=== PATIENT | female | born 1990 | race Hispanic/Latino ===

== ENCOUNTER 2020-09-25 20:12 | Emergency (ER) | payer MEDICAID ==
[2020-09-25 20:43] LABS: Basophils # (Auto) 0.1 K/mm3 (0.0-0.1); Basophils % (Auto) 0.8 % (0.0-1.8); Eosinophils # (Auto) 0.1 K/mm3 (0.0-0.4); Eosinophils % (Auto) 1.3 % (0.0-4.3); Hematocrit 40.9 % (30.3-42.9); Hemoglobin 14.1 gm/dl (10.1-14.3); Lymphocytes # (Auto) 2.4 K/mm3 (1.2-5.4); Lymphocytes % (Auto) 34.2 % (13.4-35.0); Mean Corpuscular HGB Conc 34 % (30-34); Mean Corpuscular Volume 99 fl (79-97); Monocytes # (Auto) 0.5 K/mm3 (0.0-0.8); Monocytes % (Auto) 7.7 % (0.0-7.3); Platelet Count 245 K/mm3 (140-440); Red Blood Count 4.14 M/mm3 (3.65-5.03); Red Cell Distribution Width 12.9 % (13.2-15.2)
[2020-09-25 21:01] LABS: Blood Urea Nitrogen 21 mg/dL (7-17); Calcium 9.6 mg/dL (8.4-10.2); Hemolysis Index 6
[2020-09-25 21:03] LABS: BUN/Creatinine Ratio 30
[2020-09-25 22:19] LABS: Bacteria,Urine 2+ /HPF (Negative); Bilirubin,Urine NEG (Negative); Blood,Urine NEG (Negative); Color,Urine Yellow (Yellow); Mucus,Urine FEW /HPF; Protein,Urine <15 mg/dL mg/dL (Negative); Urobilinogen,Urine < 2.0 mg/dL (<2.0)
[2020-09-25 22:21] LABS: Amphetamine Screen,Urine Negative; Benzodiazepines Screen,Urine Negative; Cannabinoid Screen,Urine Negative; Cocaine Screen,Urine Negative; Methadone Screen,Urine Negative; Opiate Screen,Urine Negative
--- NOTE | 2020-09-26 04:25 | Emergency Department Report ---
ED Psych HPI - General Chief Complaint: Psych Stated Complaint: ANXIETY Time Seen by Provider: 09/26/20 04:21 Source: patient Mode of arrival: Ambulatory - History of Present Illness Initial Comments: Patient is 30 years old female with history of bipolar disorder. Patient prese nted to the ER by herself for evaluation of depression. Patient stated that she was on mental health assessment. Patient stated that she is going through a lot of stress and she is having difficulty coping with it. 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 Patient denied any suicidal or homicidal ideation. No visual or auditory hallucination. MD Complaint: feels depressed - Related Data Allergies Allergy/AdvReac Type Severity Reaction Status Date / Time No Known Allergies Allergy Unverified 09/25/20 20:29 ED Review of Systems ROS: Stated complaint: ANXIETY Other details as noted in HPI Comment: All other systems reviewed and negative Constitutional: denies: chills, fever Respiratory: denies: cough, shortness of breath, SOB with exertion, SOB at rest, wheezing Cardiovascular: denies: chest pain, palpitations Gastrointestinal: denies: abdominal pain, nausea, vomiting Musculoskeletal: denies: back pain Neurological: denies: headache, weakness, numbness, paresthesias, confusion, abnormal gait Psychiatric: depression. denies: auditory hallucinations, visual hallucinations, homicidal thoughts, suicidal thoughts ED Past Medical Hx - Past Medical History Previous Medical History?: Yes Hx Psychiatric Treatment: Yes (Anxiety, Depression, Bipolar) - Surgical History Past Surgical History?: Yes Hx Appendectomy: Yes - Social History Smoking Status: Current Every Day Smoker Substance Use Type: None ED Physical Exam - General Limitations: No Limitations General appearance: alert, in no apparent distress - Head Head exam: Present: atraumatic, normocephalic, normal inspection - Eye Eye exam: Present: normal appearance - ENT ENT exam: Present: normal exam, normal orophraynx, mucous membranes moist - Neck Neck exam: Present: normal inspection, full ROM. Absent: tenderness, meningismus, lymphadenopathy, thyromegaly - Respiratory Respiratory exam: Present: normal lung sounds bilaterally - Cardiovascular Cardiovascular Exam: Present: regular rate, normal rhythm, normal heart sounds - GI/Abdominal GI/Abdominal exam: Present: soft, normal bowel sounds. Absent: distended, tenderness, guarding, rebound, rigid, organomegaly, mass, bruit, pulsatile mass, hernia - Extremities Exam Extremities exam: Present: normal inspection, full ROM, normal capillary refill. Absent: pedal edema, calf tenderness - Back Exam Back exam: Present: normal inspection, full ROM. Absent: CVA tenderness (R), CVA tenderness (L) - Neurological Exam Neurological exam: Present: alert, oriented X3, CN II-XII intact - Psychiatric Psychiatric exam: Present: flat affect. Absent: agitated, manic, homicidal ideation, suicidal ideation - Skin Skin exam: Present: warm, intact, normal color ED Course Vital Signs 09/25/20 20:33 Temperature 97.7 F Pulse Rate 62 Respiratory 16 Rate Blood Pressure 125/71 O2 Sat by Pulse 100 Oximetry ED Medical Decision Making - Lab Data Result diagrams: 09/25/20 20:32 09/25/20 20:32 Critical care attestation.: If time is entered above; I have spent that time in minutes in the direct care of this critically ill patient, excluding procedure time. ED Disposition Clinical Impression: Depression Disposition: [facility]- [facility] Is pt being admited?: No Condition: Stable Referrals: PRIMARY CARE, [Primary Care Provider] - 3-5 Days
[2020-09-26 07:50] VITALS: BP 110/58
--- NOTE | 2020-09-26 11:05 | Consultation ---
History of Present Illness - Reason for Consult Consult date: 09/26/20 Reason for consult: MHE Requesting physician: LATA MCKEON - History of Present Psychiatric Illness Per ED provider patient is 30 years old female with history of bipolar disorder. Patient presented to the ER by herself for evaluation of depression. Patient stated that she was on mental health assessment. Patient stated that she is going through a lot of stress and she is having difficulty coping with it. 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 Patient denied any suicidal or homicidal ideation. No visual or auditory hallucination. PSYCH HPI Patient is a single, currently unemployed female who resides in a transitional home with past psychiatric history of bipolar, depression, borderline personality disorder who presented to the ED seeking mental health evaluation with medication management. Patient reported that she has been very anxious lately, and to get her life together and the only decision made her feel off and she feels she is being watched observe with someone expecting her to fail. 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 Patient stated that she is here because she will need help with medication to slow her thought process because she feels she is having racing thoughts. She denies hearing voices denies suicidal homicidal ideation at this moment. PAST PSYCHIATRIC HISTORY Diagnoses: bipolar, depression, borderline personality disorder Suicide attempts or Self-harm behavior: Yes overdose in 2019 Prior psychiatric hospitalizations: Yes Substance Abuse history: all type of drug was recently alcohol Previous psychiatric medications tried: Noncompliant Outpatient treatment: None at this moment PAST MEDICAL HISTORY: None reported Family Psychiatric History: None reported or documented SOCIAL HISTORY Marital Status: Single Living Arrangements: Transitional housing Employment Status: Unemployed Access to guns/weapons: None reported Education: High school History of Abuse: None up Legal History: Yes REVIEW OF SYSTEMS Constitutional: Negative for weight loss ENT: Negative for stridor Respiratory: Negative for cough or hemoptysis All other systems reviewed and are negative MENTAL STATUS EXAMINATION General Appearance and Behavior: Age appropriate, good hygiene, wearing appropriate clothes, good eye contact, cooperative polite with questioning. Cooperation: Participating/engaged Psychomotor Behavior: unremarkable and within normal limits Mood: Good Affect and affective range: congruent with mood Thought Process: Racing thoughts Thought Content: Within reality, Speech: Normal volume, Regular rate and rhythm, Intellectual Functioning: Average Suicidal Ideation: Denies SI Homicidal Ideation: Denies HI Impulse Control: Unimpaired Insight and Judgment: Normal insight and judgment, Memory: Normal, Attention: Normal, Orientation: Alert, oriented, Diagnoses: Assessment and Plan - Psychiatric problem (1) Bipolar 1 disorder, depressed Current Visit: Yes Status: Acute Treatment Plan MEDICATIONS: We will start patient on lorazepam, fluoxetine, and Wellbutrin. Risks, benefits and alternatives of medications discussed with the patient, questions answered and consent obtained from patient. PSYCHOTHERAPY: Supportive psychotherapy provided MEDICAL: Per primary team DELIRIUM PRECAUTIONS: Please re-orient patient frequently, keep lights on during the day, and minimize benzodiazepines and opiates as these medications could worsen patient's confusion. 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 Please contact with any questions and/or concerns. Medications and Allergies Allergies Allergy/AdvReac Type Severity Reaction Status Date / Time No Known Allergies Allergy Unverified 09/25/20 20:29 Home Medications Medication Instructions Recorded Confirmed Last Taken Type FLUoxetine [PROzac] 10 mg PO QDAY #30 tablet 09/26/20 Unknown Rx OLANzapine [ZyPREXA] 5 mg PO QDAY #30 tablet 09/26/20 Unknown Rx buPROPion [Wellbutrin] 100 mg PO 0900,1400 #60 tab 09/26/20 Unknown Rx Mental Status Exam - Vital signs Last Vital Signs Temp 97.7 F 09/25/20 20:33 Pulse 85 09/26/20 07:48 Resp 16 09/26/20 07:48 BP 110/58 09/26/20 07:38 Pulse Ox 98 09/26/20 07:48 Results Result Diagrams: 09/25/20 20:32 09/25/20 20:32 Abnormal lab results 09/25/20 09/25/20 09/25/20 Range/Units 20:32 20:32 20:32 MCV (79-97) fl MCH (28-32) pg RDW (13.2-15.2) % Briscoe % (Auto) (0.0-7.3) % BUN 21 H (7-17) mg/dL Glucose 103 H (65-100) mg/dL Salicylates < 0.3 L (2.8-20.0) mg/dL Acetaminophen 5.0 L (10.0-30.0) ug/mL 09/25/20 Range/Units 20:32 MCV 99 H (79-97) fl MCH 34 H (28-32) pg RDW 12.9 L (13.2-15.2) % [place]iscoe % (Auto) 7.7 H (0.0-7.3) % BUN (7-17) mg/dL Glucose (65-100) mg/dL Salicylates (2.8-20.0) mg/dL Acetaminophen (10.0-30.0) ug/mL All other labs normal. Assessment and Plan - Psychiatric problem (1) Bipolar 1 disorder, depressed Current Visit: Yes Status: Acute
== END 2020-09-26 12:40 | disposition left against medical advice (07) ==
LOC: ED 20:12
DX: F32.9 Major depressive disorder, single episode, unspecified (principal); F17.200 Nicotine dependence, unspecified, uncomplicated; F41.9 Anxiety disorder, unspecified; Z90.49 Acquired absence of other specified parts of digestive tract
CPT/HCPCS: 36415; 80048; 80307; 80320; 81001; 84703; 85025; G0480

== ENCOUNTER 2022-01-30 22:18 | Emergency (ER) | payer MEDICAID ==
[2022-01-30 22:34] VITALS: BP 124/86
[2022-01-31] MEDS ORDERED: IBUPROFEN 400 MG TAB PO ONE (01:10)
[2022-01-31] MEDS ORDERED: ACETAMINOPHEN 325 MG TAB PO ONE (01:10)
[2022-01-31] MEDS ORDERED: TETANUS,DIPH,PERTUSS(ACELL) VACCINE 0.5 ML SYRINGE IM ONE (01:10)
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
--- NOTE | 2022-01-31 01:50 | XRay Report ---
MANDIBLE 4 VIEWS INDICATION / CLINICAL INFORMATION: jaw pain. COMPARISON: None available. FINDINGS: BONES / JOINT(S): No acute fracture or subluxation. No significant arthritis. There is periapical kd ency associated with the left second mandibular premolar. SOFT TISSUES: No significant abnormality. ADDITIONAL FINDINGS: None. IMPRESSION: 1. No acute findings. 2. 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 Signer Name: Homer Arreola MD Signed: 01/31/2022 1:46 AM Workstation Name: [id number]
[2022-01-31] MEDS ORDERED: PENICILLIN V POTASSIUM 250 MG TAB PO ONE (02:10)
== END 2022-01-31 02:41 | disposition home or self-care (01) ==
LOC: ED 22:18
DX: S01.501A Unspecified open wound of lip, initial encounter (principal); R68.84 Jaw pain; F31.9 Bipolar disorder, unspecified; Z79.899 Other long term (current) drug therapy; Z98.890 Other specified postprocedural states; F17.200 Nicotine dependence, unspecified, uncomplicated; Y08.89XA Assault by other specified means, initial encounter; Y93.89 Activity, other specified; Y92.89 Other specified places as the place of occurrence of the external cause; Y99.8 Other external cause status
CPT/HCPCS: 70100; 90471; 90715; 99283

== ENCOUNTER 2022-06-13 18:36 | Emergency (ER) | payer SELFPAY ==
[2022-06-13] MEDS ORDERED: AZITHROMYCIN 250 MG TAB PO ONE (21:12)
[2022-06-13] MEDS ORDERED: LIDOCAINE-MPF (1%) 10 MG/1 ML VIAL 5 ML INFILTRATI ONE (21:12)
[2022-06-13] MEDS ORDERED: ACETAMINOPHEN 500 MG TAB PO ONE (21:35)
--- NOTE | 2022-06-13 21:35 | Emergency Department Report ---
ED General Adult HPI - General Chief complaint: Dental/Oral Stated complaint: TOOTH ACHE Time Seen by Provider: 06/13/22 21:12 Source: patient Mode of arrival: Ambulatory Limitations: No Limitations - History of Present Illness Initial comments: Patient presents for multiple complaints including tooth ache and STI exposure. Patient denies fevers or chills patient is tolerating p.o. intake there is no facial or gum swelling last sexual contact 3 days ago. Patient states vaginal discharge and itching. No fevers no chills no nausea or vomiting. Patient denies other injury. Severity scale (0 -10): 10 - Related Data Previous Rx's Medication Instructions Recorded Last Taken Type Amoxicillin/K Clav Tab [Augmentin 1 tab PO BID 7 Days #14 tab 06/13/22 Unknown Rx 875 mg] metroNIDAZOLE [metroNIDAZOLE 1 applicatio VG QHS 7 Days #1 tube 06/13/22 Unknown Rx VAGINAL 0.75% gel] ED Review of Systems ROS: Stated complaint: TOOTH ACHE Other details as noted in HPI Constitutional: denies: chills, fever Eyes: denies: eye pain, eye discharge, vision change ENT: dental pain. denies: ear pain, throat pain Respiratory: denies: cough, shortness of breath, wheezing Cardiovascular: denies: chest pain, palpitations Endocrine: no symptoms reported Gastrointestinal: denies: abdominal pain, nausea, vomiting, diarrhea Genitourinary: discharge. denies: urgency, dysuria, frequency, hematuria Musculoskeletal: other (Right ankle pain and swelling ). denies: back pain, joint swelling, arthralgia Skin: denies: rash, lesions Neurological: denies: headache, weakness, paresthesias Psychiatric: denies: anxiety, depression Hematological/Lymphatic: denies: easy bleeding, easy bruising ED Past Medical Hx - Medications Home Medications: Home Medications Medication Instructions Recorded Confirmed Last Taken Type Amoxicillin/K Clav Tab [Augmentin 1 tab PO BID 7 Days #14 tab 06/13/22 Unknown Rx 875 mg] metroNIDAZOLE [metroNIDAZOLE 1 applicatio VG QHS 7 Days #1 tube 06/13/22 Unknown Rx VAGINAL 0.75% gel] ED Physical Exam - General Limitations: No Limitations General appearance: alert, in no apparent distress - Head Head exam: Present: normocephalic, normal inspection - Eye Eye exam: Present: EOMI Pupils: Present: normal accommodation - ENT ENT exam: Present: mucous membranes moist, TM's normal bilaterally, normal external ear exam - Expanded ENT Exam Expanded Teeth exam: Present: dental caries (Multiple 2-3) Throat exam: Positive: normal inspection, other (Uvula midline no stridor no exudate no lesions.). Negative: tonsillar erythema, tonsillomegaly, tonsillar exudate, R peritonsillar mass, L peritonsillar mass - Neck Neck exam: Present: normal inspection, full ROM. Absent: tenderness, lymphadenopathy, thyromegaly - Respiratory Respiratory exam: Present: normal lung sounds bilaterally. Absent: respiratory distress, wheezes - Cardiovascular Cardiovascular Exam: Present: regular rate, normal rhythm, normal heart sounds. Absent: systolic murmur, diastolic murmur, rubs, gallop - GI/Abdominal GI/Abdominal exam: Present: soft, normal bowel sounds. Absent: distended, tenderness - Rectal Rectal exam: Present: deferred - External exam: Present: other (Deferred) - Extremities Exam Extremities exam: Present: normal inspection, full ROM, normal capillary refill - Expanded Lower Extremity Exam Right Ankle exam: Present: full ROM, swelling. Absent: tenderness, abrasion, laceration, ecchymosis, deformity, crepidus, dislocation, erythema, anterior draw sign Foot/Toe exam: Present: full ROM. Absent: tenderness, swelling Neuro vascular tendon exam: Absent: pulse deficit, motor deficit, sensory deficit, tendon deficit Gait: Positive: observed and normal - Back Exam Back exam: Present: normal inspection, full ROM. Absent: CVA tenderness (R), CVA tenderness (L) - Neurological Exam Neurological exam: Present: alert, oriented X3, CN II-XII intact, normal gait, reflexes normal. Absent: motor sensory deficit - Expanded Neurological Exam Expanded Patient oriented to: Present: person, place, time Speech: Present: fluid speech Motor strength exam: RUE: 5, LUE: 5, RLE: 5, LLE: 5 Best Eye Response (Rc): (4) open spontaneously Best Motor Response (Rc): (6) obeys commands Best Verbal Response (Rc): (5) oriented [place] Total: 15 - Psychiatric Psychiatric exam: Present: normal affect, normal mood - Skin Skin exam: Present: warm, dry, intact, normal color. Absent: rash ED Course Vital Signs 06/13/22 18:38 Temperature 98.1 F Pulse Rate 80 Respiratory 18 Rate Blood Pressure 110/67 [Right] O2 Sat by Pulse 100 Oximetry ED Medical Decision Making - Medical Decision Making Patient treated for STI exposure, there is no focal dental abscess, patient will be DC'd home with prescriptions. Patient given referral to [facility] dental, patient will follow-up primary care doctor in 2 to 3 days. Patient verbalized agreement understanding discharge plan. Patient DC'd home in stable condition at this time. Patient is amatory with steady gait. 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 Critical care attestation.: If time is entered above; I have spent that time in minutes in the direct care of this critically ill patient, excluding procedure time. ED Disposition Clinical Impression: Exposure to STD, Dental caries Disposition: HOME / SELF CARE / HOMELESS Is pt being admited?: No Does the pt Need Aspirin: No Condition: Stable Instructions: Safe Sex, Preventive Dental Care, Adult Additional Instructions: Medication as prescribed, follow-up with dentist in 2 to 3 days. Follow-up with your primary care doctor in 2 to 3 days. Return to emergency department should symptoms worsen. Prescriptions: metroNIDAZOLE [metroNIDAZOLE VAGINAL 0.75% gel] 1 applicatio VG QHS 7 Days #1 tube Amoxicillin/K Clav Tab [Augmentin 875 mg] 1 tab PO BID 7 Days #14 tab Referrals: [facility] [Outside] - 3-5 Days [facility] [Outside] - 3-5 Days Forms: Work/School Release Form(ED) Time of Disposition: 21:39
[2022-06-13 23:28] VITALS: BP 116/73
== END 2022-06-13 23:17 | disposition home or self-care (01) ==
LOC: EDUNIT# → ED 18:36
DX: K02.9 Dental caries, unspecified (principal); Z20.2 Contact with and (suspected) exposure to infections with a predominantly sexual mode of transmission; Z79.899 Other long term (current) drug therapy
CPT/HCPCS: 96372; 99282; J0696; J3490